=== PATIENT | male | born 1995 | race Two or more races ===

== ENCOUNTER 2023-10-09 10:12 | Emergency (ER) | payer SELFPAY ==
[~2023-10-09] VITALS: Ht 172.7 cm; Wt 70.5 kg
[2023-10-09 10:33] VITALS: BP 135/93; PULSE 76; RESP 18; TEMP 98
[2023-10-09] MEDS ORDERED: IBUP-1492 PO (14:39)
== END 2023-10-09 15:28 | disposition home or self-care (01) ==
LOC: EMS 10:12
DX: S20.212A Contusion of left front wall of thorax, initial encounter (principal); X58.XXXA Exposure to other specified factors, initial encounter; Y93.89 Activity, other specified; Y92.89 Other specified places as the place of occurrence of the external cause; Y99.8 Other external cause status
CPT/HCPCS: 71100; 99283